=== PATIENT | male | born 1980 | race Caucasian/White ===

== ENCOUNTER 2021-02-24 09:44 | Emergency (ER) | payer SELFPAY ==
[2021-02-24 10:00] VITALS: BP 126/73; PULSE 64
[2021-02-24] MEDS ORDERED: Sodium Chloride 0.9% 10 ML Syringe FLUSH PRN (10:03)
[2021-02-24] MEDS ORDERED: HYDROmorphone 0.5 MG/0.5 ML Syringe IVPUSH ONE (10:11)
[2021-02-24] MEDS ORDERED: Ondansetron 4 MG/2 ML SDV IVPUSH ONE (10:11)
[2021-02-24] MEDS ORDERED: ceFAZolin 2 GM in Premix Bag 1 BAG IV ONE (10:13)
[2021-02-24] MEDS ORDERED: Dextrose 5%-0.9% NaCl 1,000 ML IV SCH (10:15)
--- NOTE | 2021-02-24 10:15 | EDM.PDOC ---
ED HPI GENERAL MEDICAL PROBLEM - General Chief Complaint: Laceration Stated Complaint: LACERATION 2 FINGERS Time Seen by Provider: 02/24/21 10:14 Source of Information: Reports: Patient History Limitations: Reports: No Limitations - History of Present Illness INITIAL COMMENTS - FREE TEXT/NARRATIVE: 41-year-old male presents to the ED with an acute injury to the volar aspect of his left hand. Of note the patient is right-hand dominant. He states he was at work this morning and changing the pad on a large power tool. The drum of this machine came down and slammed his left hand into the concrete. He estimates the drum weighs about 80 pounds. This resulted in open lacerations across the volar aspect of the left second third and fourth fingers. He is unable to flex the second or third finger at all. He has normal flexion of the fourth finger. Suspect open fractures. Injury occurred within the hour prior to coming to the ED. His tetanus toxoid was last updated 5 years ago. He has no known allergies. Onset: Today, Sudden Onset Date: 02/24/21 Onset Time: 09:20 Duration: Minutes: Location: Reports: Upper Extremity, Left (Injuries to the volar aspect of his left hand primarily involving second third and fourth fingers over the middle phalanges.) Quality: Reports: Ache, Throbbing Severity: Moderate (710) Improves with: Reports: Rest Worsens with: Reports: Movement Context: Reports: Trauma (Blunt force trauma from a heavy desk of a machine he was changing the blade on. Weighs about 80 pounds). 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.) Left Hand Pain Score (Numeric/FACES): 4 - Related Data Allergies Allergy/AdvReac Type Severity Reaction Status Date / Time No Known Allergies Allergy Verified 02/24/21 10:00 Home Meds: Home Meds Doxycycline [Vibra-Tabs] 100 mg PO Q12HR #24 tab 02/24/21 [Rx] oxyCODONE HCl/Acetaminophen [Percocet 5-325 mg Tablet] 1 - 2 each PO Q4H PRN #20 tablet 02/24/21 [Rx] Past Medical History - Past Health History Medical/Surgical History: Denies Medical/Surgical History - Infectious Disease History Infectious Disease History: Reports: Novel Coronavirus Social & Family History - Tobacco Use Tobacco Use Status *Q: Current Every Day Tobacco User Years of Tobacco use: 25 Packs/Tins Daily: 1 - Recreational Drug Use Recreational Drug Use: Yes Drug Use in Last 12 Months: Yes Recreational Drug Type: Reports: Marijuana/Hashish Recreational Drug Use Frequency: Socially - Living Situation & Occupation Living situation: Reports: Single Occupation: Employed (Self-employed) ED ROS GENERAL - Review of Systems Review Of Systems: See Below Constitutional: Reports: No Symptoms HEENT: Reports: No Symptoms Respiratory: Reports: Wheezing, Cough (Smoker's cough) Cardiovascular: Reports: No Symptoms Endocrine: Reports: No Symptoms GI/Abdominal: Reports: No Symptoms : Reports: No Symptoms Musculoskeletal: Reports: No Symptoms Skin: Reports: No Symptoms Neurological: Reports: No Symptoms Psychiatric: Reports: No Symptoms Hematologic/Lymphatic: Reports: No Symptoms Immunologic: Reports: No Symptoms ED EXAM, SKIN/RASH Exam: See Below Exam Limited By: No Limitations General Appearance: Alert, WD/WN, Mild Distress, Other (Temperature is 36.4 degrees which is abnormal but it is cold outside. Heart rate is 64 and sinus respiratory is 18 with O2 sats 100% room air. BP 126/73) Eye Exam: Bilateral Eye: Normal Inspection, PERRL Neck: Normal Inspection, Supple, Non-Tender, Full Range of Motion. No: Carotid Bruit, Lymphadenopathy (L), Lymphadenopathy (R) Respiratory/Chest: No Respiratory Distress, Wheezing (Chelita expiratory wheezes.) Cardiovascular: Normal Peripheral Pulses, Regular Rate, Rhythm, No Edema, No Gallop, No Rub Peripheral Pulses: 2+: Posterior Tibial (L), Posterior Tibial (R), Dorsalis Pedis (L), Dorsalis Pedis (R), 3+: Carotid (L), Carotid (R) GI/Abdominal: Normal Bowel Sounds, Soft, Non-Tender, No Organomegaly, No Distention, Other (Scaphoid abdomen.) Extremities: Other (Examination was confined to his left hand. He has a 1.5 to 2 cm laceration across the middle phalanges of the second and third digits on the volar aspect. There is a 1 cm laceration over the PIP joint of the fourth finger. He is able to fully flex his left fourth and fifth fingers. He is unable ) Neurological: Alert, Oriented, CN II-XII Intact, Normal Cognition Psychiatric: Anxious Skin: Warm, Dry, No Rash. No: Intact ED SKIN PROCEDURES - Laceration/Wound Repair Left Digit - 2nd (Index) Appearance: Subcutaneous, Stellate Distal NVT: Neuro & Vascular Intact Anesthetic Type: Digital Local Anesthesia - Bupivicaine (Marcaine): 0.5% Plain Local Anesthetic Volume: 5cc Skin Prep: Saline Saline Irrigation (cc's): 100 (100 mils irrigation of both lacerations to the second and third volar digits) Exploration/Debridement/Repair: Wound Explored Closed with: Sutures Lac/Wound length In cm: 2.8 Suture Size: 3-0 # of Sutures: 10 Suture Type: Nylon, Simple Course - Vital Signs Last Recorded V/S: Last Vital Signs Temp 36.4 C 02/24/21 09:56 Pulse 64 02/24/21 09:56 Resp 18 02/24/21 09:56 BP 126/73 02/24/21 09:56 Pulse Ox 100 02/24/21 09:56 - Orders/Labs/Meds Orders: Active Orders 24 hr Category Date Time Status Peripheral IV Insertion Adult [OM.PC] Stat Oth 02/24/21 10:03 Ordered Meds: Medications Discontinued Medications Generic Name Dose Route Start Last Admin Trade Name Freq PRN Reason Stop Dose Admin Bupivacaine HCl 20 ml 02/24/21 11:05 02/24/21 11:14 Bupivacaine 0.5% 10 Ml Sdv INJECT 02/24/21 11:06 20 ml ONETIME ONE Administration Hydromorphone HCl 0.5 mg 02/24/21 10:11 02/24/21 10:23 Hydromorphone 0.5 Mg/0.5 Ml Syringe IVPUSH 02/24/21 10:12 0.5 mg ONETIME ONE Administration Dextrose/Sodium Chloride 1,000 mls @ 150 mls/hr 02/24/21 10:15 02/24/21 10:22 Dextrose 5%-Normal Saline IV 150 mls/hr ASDIRECTED MEGHNA Administration Cefazolin Sodium 1 gm/ Sodium 50 mls @ 100 mls/hr 02/24/21 10:30 02/24/21 11:30 Chloride IV 02/24/21 11:29 100 mls/hr Q30M MEGHNA Administration Ondansetron HCl 4 mg 02/24/21 10:11 02/24/21 10:22 Ondansetron 4 Mg/2 Ml Sdv IVPUSH 02/24/21 10:12 4 mg ONETIME ONE Administration Sodium Chloride 10 ml 02/24/21 10:03 02/24/21 10:23 Sodium Chloride 0.9% 10 Ml Syringe FLUSH 10 ml ASDIRECTED PRN Administration Keep Vein Open - Radiology Interpretation Free Text/Narrative:: 41-year-old male presents to the ED with acute injury to the volar aspect of his left hand. He was injured in the workplace this morning when he was changing a disc on a heavy machine weighing approximate 120 pounds. The disc came down and slammed his hand against concrete. This resulted in open lacerations across the middle phalanges of the left second and third fingers and PIP joint of the fourth finger. He has full range of motion of his fourth and fifth fingers but he is unable to flex the second or third fingers at all. Suspect due to bony fractures. Possibility of tendon injury less likely. Wounds will need to be explored. Plan tetanus toxoid is up-to-date. Given Dilaudid 0.5 mg IV with Zofran 4 mg IV for pain relief. X-rays of the left hand to be done. He will also be given Ancef 2 g IV. - Re-Assessments/Exams Free Text/Narrative Re-Assessment/Exam: 02/24/21 11:06 x-rays of the left hand reveal fractures middle phalanges of the second and third fingers. There is displacement of the third finger fracture that will require reduction and pinning. These fractures are slightly comminuted with associated soft tissue swelling at the fracture sites. 02/24/21 11:32 Digital block has been performed using 0.5% bupivacaine on both the second and third fingers. Utilized 5 mils of 0.5% bupivacaine to each finger. The laceration volar aspect of the fourth finger was anesthetized locally with 0.5% bupivacaine. 2 sutures were placed in this laceration with the rest of the skin been having been avulsed. It was 7 mm in length. 02/24/21 11:44 I have spoken to the 1 call nurse at [facility] in [place] and Dr. Bolton is the current orthopedic surgeon on-call but he is in the operating room at this time. 02/24/21 14:16 lacerations to the left second, third and fourth volar fingers have been repaired. 10 sutures were placed in the second finger and 8 sutures were placed in the third finger and 2 in the fourth finger the wounds will be cleansed and then fingercot dressings applied. He will be placed on Percocet tabs 5/325 mg strength 1 or 2 tablets every 4-6 hours necessary for pain relief for the next few days. He will be placed on doxycycline 100 mg twice daily for the next 10 days prevent secondary wound infection since these are open fractures. He will require orthopedic surgical opinion on [facility] in [place] and he will phone tomorrow to arrange an appointment or later today. It appears that the second and third fingers will require pinning. Departure - Departure Time of Disposition: 14:18 Disposition: Home, Self-Care 01 Condition: Fair Clinical Impression: Fracture of fingers, multiple sites, open Qualifiers: Encounter type: initial encounter Qualified Code(s): S62.609B - Fracture of unspecified phalanx of unspecified finger, initial encounter for open fracture Laceration of finger of left hand Qualifiers: Encounter type: initial encounter Finger: middle finger Damage to nail status: with damage Foreign body presence: without foreign body Qualified Code(s): S61.313A - Laceration without foreign body of left middle finger with damage to nail, initial encounter - Discharge Information *PRESCRIPTION DRUG MONITORING PROGRAM REVIEWED*: Not Applicable *COPY OF PRESCRIPTION DRUG MONITORING REPORT IN PATIENT GUS: Not Applicable Prescriptions: oxyCODONE HCl/Acetaminophen [Percocet 5-325 mg Tablet] 1 - 2 each PO Q4H PRN #20 tablet PRN Reason: pain relief. Doxycycline [Vibra-Tabs] 100 mg PO Q12HR #24 tab Instructions: Laceration Care, Adult Referrals: PCP,None [Primary Care Provider] - Forms: ED Department Discharge Additional Instructions: Evaluation in the emergency room today in regards to injuries to the left hand with lacerations to the volar aspect of fingers 2, 3 and 4. X-rays revealed fractures of the middle phalanges of both the second and third fingers that are going to require further orthopedic management by pinning. The wounds were irrigated and then sutured closed using 3-0 nylon suture. 10 sutures were placed in the index finger and 8 in the third finger and 2 in the fourth finger. Dressings that were placed in the ED should remain in place until follow-up with orthopedic surgeon on Sunday at [facility] in [place]. Please phone their clinic later today or first thing in the morning to arrange an appointment for Sunday morning to see the hand surgeon. X-rays have been sent to that facility at this time. The phone number is [phone] in the clinic is located just to the west [facility] in [place]. In the interim suggest keeping her hand elevated at the level of your heart to prevent increased blood flow to the hand which will cause increased throbbing and pain. Antibiotic is to be doxycycline 100 mg twice daily for the next 10 days with [facility] You did receive a dose of antibiotic intravenously while in the ED. Pain medication is Percocet tabs 5/325 mg s trength 1 or 2 every 4-6 hours necessary for pain relief. Of note pain medicine will cause constipation I would suggest picking up some stool softener such as MiraLAX and taking 1 scoop with beverage of choice once daily to prevent constipation while on pain medication. Sepsis Event Note (ED) - Evaluation Sepsis Screening Result: No Definite Risk - Focused Exam Vital Signs: Vital Signs Temp Pulse Resp BP Pulse Ox 02/24/21 09:56 36.4 C 64 18 126/73 100 - My Orders Last 24 Hours: My Active Orders 02/24/21 10:03 Peripheral IV Insertion Adult [OM.PC] Stat - Assessment/Plan Last 24 Hours: My Active Orders 02/24/21 10:03 Peripheral IV Insertion Adult [OM.PC] Stat ED LACERATION PROCEDURES - Laceration/Wound Repair Left Digit - 2nd (Index) Lac/wound length in cm: 2.5 Appearance: Subcutaneous, Stellate Distal NVT: Neuro & Vascular Intact Anesthetic Type: Digital Local Anesthesia - Bupivicaine (Marcaine): 0.5% Plain Local Anesthetic Volume: 5cc Saline irrigation (cc's): 100 Exploration/Debridement/Repair: Wound Explored, Minimal Debridement Closed with: Sutures Suture Size: 3-0 # of Sutures: 9 Suture Type: Nylon, Interrupted, Simple
--- NOTE | 2021-02-24 10:44 | CR ---
Left hand: 4 views of the left hand are obtained. Comparison: Prior left thumb study of 05/15/09. Slightly comminuted fractures are seen involving the middle phalanx of the second and third digits. Mild displacement is seen of the third finger fracture. No additional fracture or other bony abnormality is seen. Soft tissue swelling is also noted around the fracture sites. Impression: 1. Slightly comminuted fractures involving the middle phalanx of the left second and third digits with adjacent soft tissue injury. Diagnostic code #3
[2021-02-24] MEDS: ceFAZolin 1 GM in Sodium Chloride 0.9% 50 ML IV SCH ×2 (10:55→11:30)
[2021-02-24] MEDS ORDERED: Bupivacaine 0.5% 10 ML SDV INJECT ONE (11:05)
== END 2021-02-24 15:00 | disposition home or self-care (01) ==
LOC: JD.ED 09:44
DX: S62.623B Displaced fracture of middle phalanx of left middle finger, initial encounter for open fracture (principal); S62.621B Displaced fracture of middle phalanx of left index finger, initial encounter for open fracture; Z72.0 Tobacco use; W26.8XXA Contact with other sharp object(s), not elsewhere classified, initial encounter; Y99.0 Civilian activity done for income or pay
CPT/HCPCS: 12002; 73130; 96365; 96375; 99283; J0690; J1170; J2405; J3490; J7042